=== PATIENT | female | born 1980 | race Caucasian/White ===

== ENCOUNTER → 2016-08-18 | Outpatient (CLI) | payer OTHER ==
--- NOTE | 2016-08-18 09:04 | DI ---
Indication: ITS.REASON: R10.11 RUQ ABD PAIN PROCEDURE: US ABDOMEN COMPLETE: Encounter: Initial Comparison: None Technique: Grayscale and color Doppler sonographic imaging of the abdomen was performed. Findings: Hepatic parenchyma is homogeneous without evidence for focal mass. The gallbladder is normal. There is no wall thickening, pericholecystic fluid, sonographic Palmer's sign or cholelithiasis. Both the intra and extrahepatic biliary system are of normal caliber with the common duct measuring 4 mm in dimension. Visualized portions of the head and body of the pancreas are unremarkable. Both kidneys are present without collecting system dilatation. The right measures 11.9 cm in length and left measures 11 cm. The spleen is unremarkable. The visualized portions of the aorta and IVC are unremarkable. No free fluid. Impression: Normal abdominal sonogram. .
== END ==
LOC: IMA 08:14
PROVIDERS: ATTEND Family Medicine
DX: R10.11 Right upper quadrant pain (principal)

== ENCOUNTER → 2016-08-24 | Outpatient (CLI) | payer OTHER ==
--- NOTE | 2016-08-24 14:11 | DI ---
Indication: ITS.REASON: R17 Unspecified jaundice PROCEDURE: MRI MRCP ABD W/O CONTRAST: Encounter: Initial Comparison: Abdominal ultrasound dated August 18, 2016 Technique: Multiplanar multisequence MR imaging of the abdomen was performed without contrast. Coronal thick slab heavily T2-weighted 3-D MRCP images of the abdomen were created and reviewed along with three-dimensional volumetric reconstructions. Findings: The liver shows no contour deforming mass lesions or obvious bile duct dilatation. The gallbladder appears normal without evidence of stone disease or obvious wall thickening. No extrahepatic bile duct dilatation or common duct stone seen. The spleen, pancreas and kidneys appear grossly normal. Impression: Negative exam. No acute abnormality identified. No evidence of biliary obstruction. .
== END ==
LOC: IMA 10:34
PROVIDERS: ATTEND Family Medicine
DX: R17 Unspecified jaundice (principal)